=== PATIENT | female | born 1980 | race Caucasian/White ===

== ENCOUNTER 2016-12-28 14:27 | Emergency (ER) | payer SELFPAY | END 2016-12-28 15:15 | disposition left against medical advice (07) | LOC: UCEAST 14:27 | DX: R05 Cough (principal); R51 Headache; Z53.21 Procedure and treatment not carried out due to patient leaving prior to being seen by health care provider ==

== ENCOUNTER 2017-10-15 06:41 | Emergency (ER) | payer BC ==
[2017-10-15] MEDS ORDERED: Al Hydrox/Mg Hydrox/Simet LIQ* 30 ML UDC PO ONE (07:15)
[2017-10-15] MEDS ORDERED: Pantoprazole IV* 40 MG IV ONE (07:15)
[2017-10-15] MEDS ORDERED: Famotidine TAB* 20 MG PO ONE (07:15)
[2017-10-15] MEDS ORDERED: Lidocaine 2% VISCOUS* 15 ML UDC PO ONE (07:15)
[2017-10-15] MEDS ORDERED: Ondansetron INJ* 2 MG/ML VIAL IV ONE (07:24)
--- NOTE | 2017-10-15 07:25 | ED ---
HPI Chest Pain - HPI Summary HPI Summary: 37 female presents with epigastric pain/chest pain for the past 2 days. She states is worse after eating. She states it is worse at night. She states that she lays down and it is worst. She never had this pain before. She admits to nausea but denies any vomiting. She has no appetite. She admits to diarrhea. She denies any constipation. No painful urination. No flank pain. States the pain is sharp. She hasn't tried anything for pain. She has history of open heart surgery fo that caused a stroke. She has had nausea off and on but is not currently on medications. She denies any family history of cardiac disease. She is smoker. She denies any recent travel. She denies any pain or swelling in her calf muscles. She has a before. - History of Current Complaint Chief Complaint: EDAbdPain Time Seen by Provider: 10/15/17 06:51 Hx Last Menstrual Period: 10/17/12 Pain Intensity: 7 - Allergy/Home Medications Allergies/Adverse Reactions: Allergies Allergy/AdvReac Type Severity Reaction Status Date / Time ketorolac [From Toradol] AdvReac Mild Rash Verified 10/15/17 06:48 Penicillins AdvReac Mild Edema Verified 10/15/17 06:48 aspirin AdvReac See Comment Verified 10/15/17 06:48 PMH/Surg Hx/FS Hx/Imm Hx Endocrine/Hematology History: Denies: Hx Anticoagulant Therapy, Hx Diabetes, Hx Thyroid Disease Cardiovascular History: Reports: Hx Hypertension - off and on, Other Cardiovascular Problems/Disorders - 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 Denies: Hx Pacemaker/ICD Respiratory History: Denies: Hx Asthma, Hx Chronic Obstructive Pulmonary Disease (COPD) GI History: Denies: Hx Ulcer History: Reports: Hx Kidney Stones - A FEW YEARS AGO Denies: Hx Renal Disease Sensory History: Reports: Hx Contacts or Glasses - READING GLASSES Denies: Hx Hearing Aid Opthamlomology History: Reports: Hx Contacts or Glasses - READING GLASSES Neurological History: Reports: Hx Migraine - MONTHLY-TX WITH ALEVE Denies: Hx Seizures Psychiatric History: Reports: Hx Anxiety - SOME- STATES RESOLVED Denies: Hx Panic Disorder - Surgical History Surgery Procedure, Year, and Place: open heart repair hole 2001 at [facility]. 2011. tubal ligation 2011. PIN PLACEMENT IN THE RIGHT HAND-06/24/13 and removal of pin Feb 2014. 08/12/2013 ORIF RIGHT HAND , [facility] Hx Anesthesia Reactions: Yes - PANIC WHEN WAKES UP Infectious Disease History: No Infectious Disease History: Denies: Hx Clostridium Difficile, Hx Hepatitis, Hx Human Immunodeficiency Virus (HIV), Hx of Known/Suspected MRSA, Hx Shingles, Hx Tuberculosis, Hx Known/ Suspected VRE, Hx Known/Suspected VRSA, History Other Infectious Disease, Traveled Outside the [place] in Last 30 Days - Family History Known Family History: Negative: Cardiac Disease - Social History Alcohol Use: None Substance Use Type: Reports: None Smoking Status (MU): Light Every Day Tobacco Smoker Amount Used/How Often: 1/2 PPD Have You Smoked in the Last Year: Yes Review of Systems Negative: Fever Positive: Chest Pain Positive: Shortness Of Breath. Negative: Cough Positive: Abdominal Pain, Nausea. Negative: Vomiting, Diarrhea All Other Systems Reviewed And Are Negative: Yes Physical Exam Triage Information Reviewed: Yes Vital Signs On Initial Exam: Initial Vitals Temp Pulse Resp BP Pulse Ox 97.8 F 105 20 156/113 99 10/15/17 06:43 10/15/17 06:43 10/15/17 06:43 10/15/17 06:43 10/15/17 06:43 Vital Signs Reviewed: Yes Appearance: Positive: Well-Appearing Skin: Positive: Warm, Dry Head/Face: Positive: Normal Head/Face Inspection Eyes: Positive: Normal, Conjunctiva Clear ENT: Positive: Pharynx normal Respiratory/Lung Sounds: Positive: Clear to Auscultation, Breath Sounds Present , Other - reproducible chest pain Cardiovascular: Positive: Normal, RRR Abdomen Description: Positive: Soft, Other: - tenderness LUQ Bowel Sounds: Positive: Present Musculoskeletal: Positive: Normal Neurological: Positive: Normal Psychiatric: Positive: Normal Diagnostics - Vital Signs Vital Signs Temp Pulse Resp BP Pulse Ox 10/15/17 06:59 98 96 10/15/17 06:58 102 162/124 95 10/15/17 06:43 97.8 F 105 20 156/113 99 - Laboratory Result Diagrams: 10/15/17 07:21 10/15/17 07:21 Lab Statement: Any lab studies that have been ordered have been reviewed, and results considered in the medical decision making process. - Radiology chest Radiology Interpretation Completed By: Radiologist - EKG No standard instances Cardiac Rate: Tachycardia EKG Rhythm: Sinus Tachycardia EKG Interpretation: sinus tachycardia EKG Comparison: Other - previous a flutter Re-Evaluation - Re-Evaluation First Eval Re-Evaluation Time: 08:49 Change: Improved Comment: feeling better after gi cocktail Chest Pain Course/Dx - Course Course Of Treatment: 37 female presents with epigastric pain/chest pain for the past 2 days. She states is worse after eating. She states it is worse at night. She states that she lays down and it is worst. She never had this pain before. She admits to nausea but denies any vomiting. She has no appetite. She admits to diarrhea. She denies any constipation. No painful urination. No flank pain. States the pain is sharp. She hasn't tried anything for pain. She has history of open heart surgery fo that caused a stroke. She has had nausea off and on but is not currently on medications. She denies any family history of cardiac disease. She is smoker. She denies any recent travel. She denies any pain or swelling in her calf muscles. She has a before. on exam reproducible chest pain. tenderness LUQ. ekg sinus tachycardia. chest xray d-dimer neg. troponin neg. - Chest Pain Differential Diagnosis/HQI/PQRI: Chest Wall, GI Disease, Pulmonary Embolism - Diagnoses Provider Diagnoses: Epigastric pain, Chest pain Discharge - Sign-Out/Discharge Documenting (check all that apply): Patient Departure - Discharge Plan Condition: Good Disposition: HOME Prescriptions: Al Hydrox/Mg Hydrox/Simet LIQ* [Maalox Plus*] 30 ml PO Q6H PRN #1 bottle PRN Reason: Dyspepsia Omeprazole CAP* [Prilosec CAP* 20 MG] 20 mg PO DAILY #14 Patient Education Materials: Gastritis (ED), Diet for Stomach Ulcers and Gastritis (ED) Forms: *Work Release Referrals: Juan Antonio Rojas MD [Medical Doctor] - [facility] [Outside] Additional Instructions: Take omeprazole once a day Take Maalox 30ml every 6 hours for epigastric pain as needed take zofran every 6 hours as needed nausea Avoid acidic foods Elevated head of bed Stay upright for at least 30 mins after eating Follow up with primary within 5 days, may need to follow up with GI in the future a referral given Return to ED if develop fever, blood in stool, or severe vomiting or any new or worsening symptoms - Billing Disposition and Condition Condition: GOOD Disposition: Home
[2017-10-15 07:33] LABS: ABS Basophils 0 10^3/ul (0-0.2); ABS Eosinophils 0 10^3/ul (0-0.6); ABS Lymphocytes 1.4 10^3/ul (1.0-4.8); ABS Monocytes 0.4 10^3/ul (0-0.8); ABS Neutrophils 6.8 10^3/ul (1.5-7.7); ABS Nucleated RBC 0 10^3/ul; Eosinophil % 0.6 % (0-6); Hematocrit 45 % (35-47); Hemoglobin 15.2 g/dl (12.0-16.0); Lymphocyte % 15.9 % (25-47); Mean Corpuscular HGB Conc 34 g/dl (31-36); Mean Corpuscular Hemoglobin 28 pg (27-31); Mean Corpuscular Volume 82 fL (80-97); Mean Platelet Volume 9.3 um3 (7.4-10.4); Nucleated Red Blood Cells % 0; Platelet Count 247 10^3/ul (150-450); Red Blood Count 5.46 10^6/ul (4.00-5.40); Red Cell Distribution Width 13 % (10.5-15); White Blood Count 8.7 10^3/ul (3.5-10.8)
[2017-10-15 07:43] LABS: INR 0.92 (0.77-1.02)
--- NOTE | 2017-10-15 07:49 | RAD ---
INDICATION: Chest pain COMPARISON: Most recent comparison chest x-ray August 05, 2010 TECHNIQUE: PA and lateral views of the chest were obtained. FINDINGS: The heart and mediastinum are normal in size and contour. The lungs are grossly clear. There is no evidence of large pleural effusion. Visualized bones are normal for the patient's age. There is no radiographic evidence of free air beneath the diaphragm IMPRESSION: No radiographic evidence of acute cardiopulmonary disease.
[2017-10-15 07:55] LABS: EGFR Non-African American 98.5 (>60)
--- NOTE | 2017-10-15 08:32 | RAD ---
HISTORY: epigastric pain COMPARISONS: CT dated March 20, 2015 TECHNIQUE: Multiple transverse and longitudinal ultrasound images were obtained of the right upper quadrant of the abdomen using grayscale and color Doppler imaging. FINDINGS: LIVER: The liver is normal in shape, size, contour, and echogenicity. There are no focal parenchymal masses. There is normal hepatopedal flow of the portal vein on Doppler imaging. BILIARY TREE: There is no intrahepatic or extrahepatic biliary dilatation. The common duct measures 0.5 cm. GALLBLADDER: The gallbladder is well-visualized. There is no cholelithiasis, gallbladder wall thickening, pericholecystic fluid, or sonographic Fisher sign. PANCREAS: The head of the pancreas is unremarkable. The tail of the pancreas is not well visualized secondary to overlying bowel gas. RIGHT KIDNEY: The right kidney is normal in shape, size, contour, and echogenicity. There is no hydronephrosis or nephrolithiasis. The right kidney measures 11.6 x 4 x 4.9 cm. AORTA AND IVC: The aorta and IVC are unremarkable. FLUID: There are no pleural effusions. There is no free fluid within the hepatorenal recess. OTHER FINDINGS: None. IMPRESSION: NO ACUTE SONOGRAPHIC PATHOLOGY OF THE VISUALIZED PORTION OF THE ABDOMEN.
[2017-10-15 09:21] VITALS: BP 135/114
== END 2017-10-15 09:27 | disposition home or self-care (01) ==
LOC: ED 06:41
DX: R10.13 Epigastric pain (principal); R07.89 Other chest pain; R00.0 Tachycardia, unspecified; Z88.6 Allergy status to analgesic agent; Z88.5 Allergy status to narcotic agent; Z88.0 Allergy status to penicillin; F17.210 Nicotine dependence, cigarettes, uncomplicated
CPT/HCPCS: 36415; 71046; 76705; 80053; 83605; 83690; 84484; 84702; 85025; 85379; 85610; 85730; 86140; 93005; 96374; 96375; 99282; A9270-GY

== ENCOUNTER 2018-08-13 19:42 | Emergency (ER) | payer BC ==
[2018-08-13 22:14] LABS: ABS Basophils 0.1 10^3/ul (0-0.2); ABS Eosinophils 0.1 10^3/ul (0-0.6); ABS Lymphocytes 2.5 10^3/ul (1.0-4.8); ABS Monocytes 0.7 10^3/ul (0-0.8); ABS Neutrophils 6.1 10^3/ul (1.5-7.7); Eosinophil % 0.5 %; Hematocrit 44 % (35-47); Hemoglobin 14.9 g/dL (12.0-16.0); Lymphocyte % 26.9 %; Mean Corpuscular HGB Conc 34 g/dL (31-36); Mean Corpuscular Hemoglobin 28 pg (27-31); Mean Corpuscular Volume 83 fL (80-97); Nucleated Red Blood Cells % 0.1; Platelet Count 299 10^3/uL (150-450); Red Blood Count 5.31 10^6 /uL (3.70-4.87); Red Cell Distribution Width 13 % (10.5-15); White Blood Count 9.4 10^3/uL (3.5-10.8)
--- NOTE | 2018-08-13 22:20 | ED ---
Abdominal Pain/Female - HPI Summary HPI Summary: This patient is a 37 year old female presenting to [facility] with a chief complaint of periumbilical pain and diarrhea since last night. Yesterday the patient was experiencing nausea diarrhea and today she experienced gas-like pain which has gotten worse as the day progressed. She staters the pain has localized to her RLQ. She notes decreased appetite. She rates her pain 8/10 in severity. Patient has a Hx of stroke. Patients LNMP was 2 weeks ago. - History of Current Complaint Chief Complaint: EDAbdPain Stated Complaint: RIGHT STOMACH-DINESH PAIN PER PT Hx Obtained From: Patient Hx Last Menstrual Period: 10/17/12 Onset/Duration: Sudden Onset, Lasting Days Pain Intensity: 8 Pain Scale Used: 0-10 Numeric Location: Discrete At: RLQ, Umbilical Allergies/Adverse Reactions: Allergies Allergy/AdvReac Type Severity Reaction Status Date / Time ketorolac [From Toradol] AdvReac Mild Rash Verified 08/13/18 19:57 Penicillins AdvReac Mild Edema Verified 08/13/18 19:57 aspirin AdvReac See Comment Verified 08/13/18 19:57 PMH/Surg Hx/FS Hx/Imm Hx Endocrine/Hematology History: Denies: Hx Anticoagulant Therapy, Hx Diabetes, Hx Thyroid Disease Cardiovascular History: Reports: Hx Hypertension - off and on, Other Cardiovascular Problems/Disorders - 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 Denies: Hx Pacemaker/ICD Respiratory History: Denies: Hx Asthma, Hx Chronic Obstructive Pulmonary Disease (COPD) GI History: Denies: Hx Ulcer History: Reports: Hx Kidney Stones - A FEW YEARS AGO Denies: Hx Renal Disease Sensory History: Reports: Hx Contacts or Glasses - READING GLASSES Denies: Hx Hearing Aid Opthamlomology History: Reports: Hx Contacts or Glasses - READING GLASSES Neurological History: Reports: Hx Migraine - MONTHLY-TX WITH ALEVE Denies: Hx Seizures Psychiatric History: Reports: Hx Anxiety - SOME- STATES RESOLVED Denies: Hx Panic Disorder - Surgical History Surgery Procedure, Year, and Place: open heart repair hole 2002 at [facility]. 2011. tubal ligation 2011. PIN PLACEMENT IN THE RIGHT HAND-06/24/13 and removal of pin Feb 2014. 08/12/2013 [place]IF RIGHT HAND , [facility] [place] Anesthesia Reactions: Yes - PANIC WHEN WAKES UP Infectious Disease History: No Infectious Disease History: Denies: Hx Clostridium Difficile, Hx Hepatitis, Hx Human Immunodeficiency Virus (HIV), Hx of Known/Suspected MRSA, Hx Shingles, Hx Tuberculosis, Hx Known/ Suspected VRE, Hx Known/Suspected VRSA, History Other Infectious Disease, Traveled Outside the [place] in Last 30 Days - Family History Known Family History: Negative: Cardiac Disease - Social History Alcohol Use: None Substance Use Type: Reports: None Smoking Status (MU): Light Every Day Tobacco Smoker Amount Used/How Often: 1/2 PPD Have You Smoked in the Last Year: Yes Review of Systems Negative: Fever Positive: Abdominal Pain, Diarrhea, Nausea All Other Systems Reviewed And Are Negative: Yes Physical Exam - Summary Physical Exam Summary: Appearance: Obese female, lying in bed comfortably Skin: Warm, dry, no obvious rash Eyes: sclera anicteric, no conjunctival pallor ENT: mucous membranes moist, pharynx appears normal Neck: Supple, nontender Respiratory: Clear to auscultation, no signs of respiratory distress Cardiovascular: Normal S1, S2. No murmurs. Normal distal pulses in tibial and radial bilaterally. Abdomen: Soft, Point RLQ tenderness with guarding and rebound, at the third rebound from her RUQ, normal active bowel sounds present Musculoskeletal: Normal, Strength/ROM Intact Neurological: A&Ox3, awake and alert, mentation is normal, speech is fluent and appropriate Psychiatric: affect is normal, does not appear anxious or depressed Triage Information Reviewed: Yes Vital Signs On Initial Exam: Initial Vitals Temp Pulse Resp BP Pulse Ox 98.6 F 118 16 183/126 98 08/13/18 19:50 08/13/18 19:50 08/13/18 19:50 08/13/18 19:50 08/13/18 19:50 Vital Signs Reviewed: Yes Diagnostics - Vital Signs Vital Signs Temp Pulse Resp BP Pulse Ox 08/13/18 21:30 98.5 F 106 16 157/113 99 08/13/18 19:50 98.6 F 118 16 183/126 98 - Laboratory Lab Results: Lab Results 08/13/18 Range/Units 22:08 WBC 9.4 (3.5-10.8) 10^3/uL RBC 5.31 H (3.70-4.87) 10^6 /uL Hgb 14.9 (12.0-16.0) g/dL Hct 44 (35-47) % MCV 83 (80-97) fL MCH 28 (27-31) pg MCHC 34 (31-36) g/dL RDW 13 (10.5-15) % Plt Count 299 (150-450) 10^3/uL MPV 9.0 (7.4-10.4) fL Neut % (Auto) 64.4 % Lymph % (Auto) 26.9 % Hand % (Auto) 7.5 % Eos % (Auto) 0.5 % Baso % (Auto) 0.7 % Absolute Neuts (auto) 6.1 (1.5-7.7) 10^3/ul Absolute Lymphs (auto) 2.5 (1.0-4.8) 10^3/ul Absolute Monos (auto) 0.7 (0-0.8) 10^3/ul Absolute Eos (auto) 0.1 (0-0.6) 10^3/ul Absolute Basos (auto) 0.1 (0-0.2) 10^3/ul Absolute Nucleated RBC 0.0 10^3/ul Nucleated RBC % 0.1 Result Diagrams: 08/13/18 22:08 08/13/18 22:08 Lab Statement: Any lab studies that have been ordered have been reviewed, and results considered in the medical decision making process. - CT Abd/Pel CT Interpretation Completed By: Radiologist Summary of CT Findings: 1. There has been litle change from 03/20/2015. No acute interval process is identified. 2. There is mild fatty infiltration of the liver. ED Provider has reviewed this report. Abdominal Pain Fem Course/Dx - Course Course Of Treatment: This patient is a 37 year old female presenting to [facility] with a chief complaint of periumbilical pain and diarrhea since last night. CT Abdomen/Pelvis was unremarkable for acute GI problems. A plan for discharge was discussed with the patient and she was agreeable with this plan. - Diagnoses Provider Diagnoses: Acute diarrhea, Acute abdominal pain Discharge - Sign-Out/Discharge Documenting (check all that apply): Patient Departure - Discharge Patient Received Moderate/Deep Sedation with Procedure: No - Discharge Plan Condition: Good Disposition: HOME Prescriptions: Dicyclomine CAP* [Bentyl CAP*] 10 mg PO TID PRN #15 cap PRN Reason: Pain - Abdominal Patient Education Materials: Acute Diarrhea (ED), Acute Abdominal Pain (ED) Referrals: [facility] [Outside] - 3 Days (if not improving) - Billing Disposition and Condition Condition: GOOD Disposition: Home - Attestation Statements Document Initiated by Alannah: Yes Documenting Scribe: David Martinez Provider For Whom Alannah is Documenting (Include Credential): Erlin Riddle MD Scribe Attestation: David Lamb, scribed for Erlin Riddle MD on 08/14/18 at 0507. Scribe Documentation Reviewed: Yes Provider Attestation: The documentation as recorded by the David mantilla accurately reflects the service I personally performed and the decisions made by me, Erlin Riddle MD Status of Scribe Document: Viewed
[2018-08-13 22:34] LABS: ALT 13 U/L (7-52); AST 13 U/L (13-39); Albumin 4.1 g/dL (3.2-5.2); Albumin/Globulin Ratio 1.4 (1-3); Alkaline Phosphatase 101 U/L (34-104); Anion Gap 8 mmol/L (2-11); BUN/Creatinine Ratio 10.3 (8-20); Blood Urea Nitrogen 9 mg/dL (6-24); CO2 Carbon Dioxide 25 mmol/L (22-32); Calcium 9.3 mg/dL (8.6-10.3); Chloride 106 mmol/L (101-111); EGFR African American 89.7 (>60); EGFR Non-African American 74.1 (>60); Glucose 96 mg/dL (70-100); Potassium 3.9 mmol/L (3.5-5.0); Sodium 139 mmol/L (135-145); Total Protein 7.1 g/dL (6.4-8.9)
[2018-08-13 22:41] LABS: HCG Pregnancy < 0.60 mIU/mL
[2018-08-13 23:15] LABS: Urine Appearance Cloudy; Urine Bacteria 1+ (Absent); Urine Bilirubin Negative (Negative); Urine Blood Negative (Negative); Urine Color Yellow; Urine Glucose Negative (Negative); Urine Ketones Negative (Negative); Urine Nitrite Negative (Negative); Urine Protein Negative (Negative); Urine Red Blood Cell Trace(0-2/hpf) (Absent); Urine Specific Gravity 1.021 (1.010-1.030); Urine Squamous Epithelial Cell Present (Absent); Urine Urobilinogen Negative (Negative); Urine White Blood Cell 2+(11-20/hpf) (Absent)
[2018-08-13] MEDS ORDERED: Morphine 4 MG/ML VIAL (1 ml) 4 MG/ML VIAL IV PRN (23:42)
[2018-08-13] MEDS ORDERED: Iohexol 300* (CONTRAST) 10 ML SDV IV ONE (23:49)
[2018-08-14 02:13] VITALS: BP 157/121
== END 2018-08-14 02:13 | disposition home or self-care (01) ==
LOC: ED 19:42
DX: R19.7 Diarrhea, unspecified (principal); R10.9 Unspecified abdominal pain; R11.0 Nausea; F17.210 Nicotine dependence, cigarettes, uncomplicated
CPT/HCPCS: 36415; 74177; 80053; 81003; 81015; 83690; 84702; 85025; 87086; 96374; 99283; J2270; Q9967

== ENCOUNTER 2018-12-13 15:29 | Emergency (ER) | payer SELFPAY ==
[2018-12-13 15:38] VITALS: BP 165/115
--- NOTE | 2018-12-13 16:46 | UC ---
UC General HPI - HPI Summary HPI Summary: Pleasant 38 yo female c/o R hip pain progressive x 2 days. Was turning possibly to the left when the pain started. No p/d/w. No b/b leak (except with valsalva). No rash. No f/c. No sob / cp / palpitations. No prior local injury (hx upper back issues in the past, not like this). Has been taking ibuprofen but hasn't helped. - History of Current Complaint Chief Complaint: UCLowerExtremity Stated Complaint: HIP INJURY Time Seen by Provider: 12/13/18 15:44 Hx Obtained From: Patient Hx Last Menstrual Period: 12/09/18 Pain Intensity: 6 - Allergy/Home Medications Allergies/Adverse Reactions: Allergies Allergy/AdvReac Type Severity Reaction Status Date / Time ketorolac [From Toradol] AdvReac Mild Rash Verified 12/13/18 15:38 Penicillins AdvReac Mild Edema Verified 12/13/18 15:38 aspirin AdvReac See Comment Verified 12/13/18 15:38 Home Medications: Home Medications Ibuprofen 600 mg PO DAILY WITH MEAL 12/13/18 [History Confirmed 12/13/18] PMH/Surg Hx/FS Hx/Imm Hx Previously Healthy: Yes Other History Of: Negative For: Anticoagulant Therapy - Surgical History Surgical History: Yes Surgery Procedure, Year, and Place: open heart repair hole 2001 at [facility]. 2011. tubal ligation 2011. PIN PLACEMENT IN THE RIGHT HAND-06/24/13 and removal of pin Feb 2014. 08/12/2013 ORIF RIGHT HAND , [facility] - Family History Known Family History: Negative: Cardiac Disease - Social History Alcohol Use: None Substance Use Type: None Smoking Status (MU): Light Every Day Tobacco Smoker Amount Used/How Often: 1/2 PPD Have You Smoked in the Last Year: Yes - Immunization History Most Recent Influenza Vaccination: fall 2013 Most Recent Tetanus Shot: 2011 Most Recent Pneumonia Vaccination: never Review of Systems All Other Systems Reviewed And Are Negative: Yes Constitutional: Positive: Negative Skin: Positive: Negative Eyes: Positive: Negative ENT: Positive: Negative Respiratory: Positive: Negative Cardiovascular: Positive: Negative Gastrointestinal: Positive: Negative Genitourinary: Positive: Negative Motor: Positive: Other - see hpi Neurovascular: Positive: Other - see hpi Musculoskeletal: Positive: Other: - see hpi Neurological: Positive: Other - see hpi Psychological: Positive: Negative Is Patient Immunocompromised?: No Physical Exam Triage Information Reviewed: Yes Appearance: Well-Nourished, Pain Distress Vital Signs: Initial Vital Signs Temp 96.7 F 12/13/18 15:34 Pulse 125 12/13/18 15:34 Resp 19 12/13/18 15:34 BP 165/115 12/13/18 15:34 Pulse Ox 98 12/13/18 15:34 Vital Signs Reviewed: Yes Eye Exam: Normal ENT Exam: Normal Neck exam: Normal Respiratory Exam: Normal Respiratory: Positive: Chest non-tender, Lungs clear Cardiovascular Exam: Normal Abdominal Exam: Normal Musculoskeletal Exam: Other - There is point tenderness approx L5 +/- region. Pain in R hip also with back pain. + tender R ant hip, but nonfocal marcial. Able to ambulate but painful. Painful bending over (not tested d/t pain) Neurological Exam: Normal - distal sens LT present to both feet, including distal dermatomes. Denies b/b issues (see hpi) Psychological Exam: Normal Skin Exam: Normal - no visible or reported rash Course/Dx - Course Course Of Treatment: Reviewed CT report and Hip xray report with pt. Without obvious disc protrusion. However, I suspect back issue is significant here (corresponds to djd with endplate sclerosis noted at L5-S1 on CT). D/w pt, including coa / tx plan. Can not take ketoralac d/t prior reaction, but can and has been taking ibuprofen. Will start medrol dose pack (minimize ibuprofen). Also reviewed routine narc talk, without + issues. Rx norco prescribed as well with usual precautions. Hip is quite tender, will refer to orthopedics in addition to sports medicine re back. Either way, further w/u will be helpful. Aware to seek medical attention if worse or new issues including fever / rash etc. Questions as posed answered to the best of my ability. Also should f/u with pcp, routine. - Diagnoses Provider Diagnosis: Disc degeneration, lumbar, Lumbar back pain with radiculopathy affecting right lower extremity, Hip pain Discharge ED - Sign-Out/Discharge Documenting (check all that apply): Patient Departure All imaging exams completed and their final reports reviewed: Yes - Discharge Plan Condition: Stable Disposition: HOME Prescriptions: Hydrocodone/Acetaminophen [Bayard 5-325 Tablet] 2 each PO Q4H PRN #20 tablet MDD 6 PRN Reason: Pain - Severe predniSONE TAB* [Deltasone 10 MG TAB*] 10 mg PO DAILY #20 tab Patient Education Materials: Lumbar Radiculopathy (ED), Degenerative Disc Disease (ED), Hip Pain (ED) Forms: *Work Release Referrals: No Primary Care Phys,NOPCP [Primary Care Provider] - [facility] [Outside] [facility] [Outside] David Monge MD [Medical Doctor] - Additional Instructions: Follow up with Orthopedics re hip pain - call on Sunday for appointment next week if possible. \ Follow up with Sports Medicine - call on Sunday for next available appointment. Follow up with primary care physician, per routine. Seek medical attention for worse or new problems, including albeit not limited to worse pain, unrelenting pain, fever / chills. - Billing Disposition and Condition Condition: STABLE Disposition: Home
== END 2018-12-13 17:30 | disposition home or self-care (01) ==
LOC: UCEAST 15:29
DX: M25.551 Pain in right hip (principal); M54.5 Low back pain; M51.36 Other intervertebral disc degeneration, lumbar region; Z88.6 Allergy status to analgesic agent; Z88.5 Allergy status to narcotic agent; Z88.0 Allergy status to penicillin; F17.200 Nicotine dependence, unspecified, uncomplicated
CPT/HCPCS: 72131; 81003; 84702; 87086; 99212; G0463

== ENCOUNTER → 2019-03-15 | Emergency (ER) | payer SELFPAY ==
[2019-03-15 08:23] VITALS: BP 168/118
--- NOTE | 2019-03-15 17:07 | ED ---
Back Pain - HPI Summary HPI Summary: This patient is a 38-year-old female with no significant past medical history presenting to the ED with mid to low back pain which she describes as "spasming. " She states is been present 4 days. She denies any injury or trauma. Denies IV drug use. Denies any fevers, sweats, chills. She states heat has improved her symptoms somewhat. She has never had this in the past. Denies narcotic use. Denies bladder or bowel dysfunction. Denies any weakness, numbness or tingling in the lower extremities. - History of Current Complaint Chief Complaint: EDBackInjuryPain Stated Complaint: BACK PAIN PER PT Time Seen by Provider: 03/15/19 06:39 Hx Obtained From: Patient Hx Last Menstrual Period: 12/09/18 Onset/Duration: Sudden Onset Onset/Duration: Started Days Ago Timing: Intermittent, Lasting Minutes Back Pain Location: Is Discrete @ - mid and low back Severity Initially: Moderate Severity Currently: Moderate Pain Intensity: 2 Pain Scale Used: 0-10 Numeric Character: Aching, Throbbing, Spasmodic Aggravating Symptom(s): Movement Alleviating Symptom(s): Rest, Position Associated Signs And Symptoms: Negative: Swelling, Redness, Weakness, Numbness, Bladder Incontinence, Bowel Incontinence - Risk Factors AAA Risk Factors: Negative TAD Risk Factors: Negative Cauda Equina Risk Factors: Negative Epidural Abscess Risk Factors: Negative - Allergies/Home Medications Allergies/Adverse Reactions: Allergies Allergy/AdvReac Type Severity Reaction Status Date / Time ketorolac [From Toradol] AdvReac Mild Rash Verified 03/15/19 06:36 Penicillins AdvReac Mild Edema Verified 03/15/19 06:36 aspirin AdvReac See Comment Verified 03/15/19 06:36 PMH/Surg Hx/FS Hx/Imm Hx Previously Healthy: Yes Endocrine/Hematology History: Denies: Hx Anticoagulant Therapy, Hx Diabetes, Hx Thyroid Disease Cardiovascular History: Reports: Hx Hypertension - off and on, Other Cardiovascular Problems/Disorders - STATES NO PROBLEMS SINCE OPEN HEART AND NO JUNIOR LEGAL SECRETARY Denies: Hx Pacemaker/ICD Respiratory History: Denies: Hx Asthma, Hx Chronic Obstructive Pulmonary Disease (COPD) GI History: Denies: Hx Ulcer History: Reports: Hx Kidney Stones - A FEW YEARS AGO Denies: Hx Renal Disease Sensory History: Reports: Hx Contacts or Glasses - READING GLASSES Denies: Hx Hearing Aid Opthamlomology History: Reports: Hx Contacts or Glasses - READING GLASSES Neurological History: Reports: Hx Migraine - MONTHLY-TX WITH ALEVE Denies: Hx Seizures Psychiatric History: Reports: Hx Anxiety - SOME- STATES RESOLVED Denies: Hx Panic Disorder - Surgical History Surgery Procedure, Year, and Place: open heart repair hole 2001 at [facility]. 2011. tubal ligation 2011. PIN PLACEMENT IN THE RIGHT HAND-06/24/13 and removal of pin Feb 2014. 08/12/2013 ORIF RIGHT HAND , [facility] Hx Anesthesia Reactions: Yes - PANIC WHEN WAKES UP - Immunization History Hx Pertussis Vaccination: No Immunizations Up to Date: Yes Infectious Disease History: No Infectious Disease History: Denies: Hx Clostridium Difficile, Hx Hepatitis, Hx Human Immunodeficiency Virus (HIV), Hx of Known/Suspected MRSA, Hx Shingles, Hx Tuberculosis, Hx Known/ Suspected VRE, Hx Known/Suspected VRSA, History Other Infectious Disease, Traveled Outside the in Last 30 Days - Family History Known Family History: Negative: Cardiac Disease - Social History Occupation: Employed Full-time Lives: With Family Alcohol Use: None Hx Substance Use: No Substance Use Type: Reports: None Hx Tobacco Use: Yes Smoking Status (MU): Light Every Day Tobacco Smoker Amount Used/How Often: 1/2 PPD Have You Smoked in the Last Year: Yes Review of Systems Negative: Fever, Chills, Fatigue, Skin Diaphoresis Negative: Palpitations, Chest Pain Negative: Abdominal Pain, Vomiting, Diarrhea Genitourinary: Negative Positive: no symptoms reported, see HPI Positive: Arthralgia - mid to low back pain. Negative: Myalgia Neurological: Negative All Other Systems Reviewed And Are Negative: Yes Physical Exam Triage Information Reviewed: Yes Vital Signs On Initial Exam: Initial Vitals Temp Pulse Resp BP Pulse Ox 97.2 F 109 16 163/126 100 03/15/19 06:18 03/15/19 06:18 03/15/19 06:18 03/15/19 06:18 03/15/19 06:18 Vital Signs Reviewed: Yes Appearance: Positive: Well-Nourished, Pain Distress Skin: Positive: Warm, Skin Color Reflects Adequate Perfusion Head/Face: Positive: Normal Head/Face Inspection Eyes: Positive: EOMI, Conjunctiva Clear Respiratory/Lung Sounds: Positive: Clear to Auscultation, Breath Sounds Present Cardiovascular: Positive: RRR, Pulses are Symmetrical in both Upper and Lower Extremities Musculoskeletal: Positive: Pain @ - mid and low back pain directly over the paraspinal region on physical exam with no step off noted or signs of trauma Neurological: Positive: Sensory/Motor Intact, Alert, Oriented to Person Place, Time Psychiatric: Positive: Normal, Affect/Mood Appropriate AVPU Assessment: Alert Procedures - Sedation Patient Received Moderate/Deep Sedation with Procedure: No Diagnostics - Vital Signs Vital Signs Temp Pulse Resp BP Pulse Ox 03/15/19 08:13 98.0 F 98 16 168/118 98 03/15/19 07:04 102 168/128 98 03/15/19 07:02 95 176/142 99 03/15/19 07:00 98 99 03/15/19 06:59 97 173/127 100 03/15/19 06:58 96 158/122 99 03/15/19 06:33 108 162/105 99 03/15/19 06:31 109 96 03/15/19 06:18 97.2 F 109 16 163/126 100 - Laboratory Lab Statement: Any lab studies that have been ordered have been reviewed, and results considered in the medical decision making process. Back Pain Course/Dx - Course Course Of Treatment: Patient is evaluated for mid to low back pain. Pt states it has been "spasming" off and on for a few days. She denies any injury or trauma. Patient denies any bladder or bowel dysfunction. She remains ambulatory. She has tried heat with minimal relief. She is also to take ibuprofen. On physical examination, patient appears to be in pain distress. Elevated BP, appears secondary to pain distress. Patient denies hypertension history. On physical examination, there is tenderness to the mid to low spine, no step-off noted. No evidence of trauma, ecchymosis or erythema. Pt given muscle relaxers and pain medications. No indication for xray or CT at this time. - Diagnoses Differential Diagnosis/HQI/PQRI: Positive: Fracture, Herniated Disc, Strain, Sprain Provider Diagnoses: Muscle spasm Discharge ED - Sign-Out/Discharge Documenting (check all that apply): Patient Departure - Discharge Plan Condition: Stable Disposition: HOME Prescriptions: Cyclobenzaprine TAB* [Flexeril TAB*] 10 mg PO BID PRN #10 tab PRN Reason: Pain - Mild traMADol TAB* [Ultram*] 50 mg PO Q8H PRN #12 tab MDD 3 PRN Reason: Pain Patient Education Materials: Muscle Spasm (ED) Referrals: No Primary Care Phys,NOPCP [Primary Care Provider] - Additional Instructions: Flexeril up to twice daily for muscle spasms Use heat to the area as much as possible Icy-hot may help as well Tramadol up to three times daily as needed for pain Try to take on opposite schedule of flexeril to not cause too much drowsiness Do not drive with this medication - Billing Disposition and Condition Condition: STABLE Disposition: Home
== END | disposition home or self-care (01) ==
LOC: ED 06:17
DX: M62.830 Muscle spasm of back (principal); M54.5 Low back pain; I10 Essential (primary) hypertension; Z95.1 Presence of aortocoronary bypass graft; Z88.6 Allergy status to analgesic agent; Z88.5 Allergy status to narcotic agent; Z88.0 Allergy status to penicillin; F17.200 Nicotine dependence, unspecified, uncomplicated
CPT/HCPCS: 99282